=== PATIENT | male | born 1985 | race Caucasian/White ===

== ENCOUNTER 2017-06-22 15:33 | Emergency (ER) | payer BC ==
[~2017-06-22] VITALS: Ht 170.2 cm; Wt 75.0 kg
[2017-06-22 15:45] VITALS: Ht 170.2 cm; Wt 75.0 kg
[2017-06-22] MEDS ORDERED: HYDROCODONE/APAP (5/325) TAB PO ONE (16:30)
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
[2017-06-22] MEDS ORDERED: HYDR-906 PO (17:42)
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
== END 2017-06-22 19:18 | disposition home or self-care (01) ==
LOC: E/R 15:33
DX: S16.1XXA Strain of muscle, fascia and tendon at neck level, initial encounter (principal); V49.40XA Driver injured in collision with unspecified motor vehicles in traffic accident, initial encounter
CPT/HCPCS: 72125; Z7502; Z7610